=== PATIENT | female | born 1980 | race Caucasian/White ===

== ENCOUNTER 2017-04-14 08:16 | Emergency (ER) | payer BC, OTHER ==
[2017-04-14] MEDS ORDERED: Benzocaine 20% Oral Spray 59.2 ML Canister MUCMEM ONE (08:50)
[2017-04-14] MEDS ORDERED: Lidocaine 2% Jelly 10 ML Urojet MUCMEM ONE (08:50)
--- NOTE | 2017-04-14 08:55 | EDM.PDOC ---
ED HPI GENERAL MEDICAL PROBLEM - General Chief Complaint: ENT Problem Stated Complaint: FB STUCK IN THROAT OR ALLERGIC RX Time Seen by Provider: 04/14/17 08:50 Source of Information: Reports: Patient History Limitations: Reports: No Limitations - History of Present Illness INITIAL COMMENTS - FREE TEXT/NARRATIVE: 36-year-old female presents to the ED with a foreign body sensation in the right side of her throat. She states she ate a very hot meatball last evening about 1600 hrs. So hot she can keep in her mouth and she just swallowed it. Since that time she's felt foreign body sensation in the right side of her throat and she can get liquids down but she feels that part of them regurgitate his affairs still a residual foreign body. Even her saliva will sometimes not go down and it hurts very badly to try and swallow. Therefore could be a burn to the oropharynx. Foreign body could still be present as well. I will therefore try and have a look at her oropharynx with the nasopharyngeal laryngoscope. 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 (see below) Throat Pain Score (Numeric/FACES): 9 - Related Data Allergies Allergy/AdvReac Type Severity Reaction Status Date / Time Sulfa (Sulfonamide Allergy Abdominal Verified 04/14/17 08:22 Antibiotics) Pain Home Meds: Home Meds Cephalexin [Keflex] 500 mg PO TID #15 cap 04/14/17 [Rx] Diazepam [Valium] 5 mg PO TID 04/14/17 [History] Fluconazole [Diflucan] 150 mg PO ONETIME #1 tablet 04/14/17 [Rx] Gabapentin [Neurontin] 600 mg PO TID 04/14/17 [History] SUMAtriptan Succinate [Imitrex] 100 mg PO ASDIRECTED PRN 04/14/17 [History] Sucralfate [Carafate] 1 gm PO Q6H #12 cup 04/14/17 [Rx] oxyCODONE HCl/Acetaminophen [Percocet 5-325 mg Tablet] 1 - 2 each PO Q4H PRN # 20 tablet 04/14/17 [Rx] Past Medical History Cardiovascular History: Reports: Other (See Below) Other Cardiovascular History: 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: Neurological History: Reports: Other (See Below) Other Neuro History: trigeminal neurology - Past Surgical History GI Surgical History: Reports: Cholecystectomy Female Surgical History: Reports: Hysterectomy Social & Family History - Tobacco Use Smoking Status *Q: Never Smoker Second Hand Smoke Exposure: No - Caffeine Use Caffeine Use: Reports: Coffee - Recreational Drug Use Recreational Drug Use: No - Living Situation & Occupation Living situation: Reports: Occupation: Employed ED ROS ENT - Review of Systems Review Of Systems: See Below Constitutional: Denies: Fever, Chills, Malaise, Weakness, Decreased Appetite, Weight Loss HEENT: Reports: Throat Pain Respiratory: Reports: No Symptoms (Mostly on the right side when she swallows.) , Other (No stridorous breathing.) Cardiovascular: Reports: No Symptoms Endocrine: Reports: No Symptoms GI/Abdominal: Reports: No Symptoms : Reports: No Symptoms ED EXAM, ENT - Physical Exam Exam: See Below Exam Limited By: No Limitations General Appearance: Alert, WD/WN, No Apparent Distress Mouth/Throat: Other (Posterior oropharynx visualized with tongue blade shows no abnormalities.) Neck: Normal Inspection, Supple, Non-Tender, Full Range of Motion. No: Lymphadenopathy (L), Lymphadenopathy (R) Respiratory/Chest: No Respiratory Distress, Lungs Clear, Normal Breath Sounds, No Accessory Muscle Use Cardiovascular: Normal Peripheral Pulses, Regular Rate, Rhythm, No Edema, No Gallop, No Murmur, No Rub Course - Vital Signs Last Recorded V/S: Last Vital Signs Temp 36.3 C 04/14/17 08:24 Pulse 72 04/14/17 08:24 Resp 13 04/14/17 08:24 BP 128/73 04/14/17 08:24 Pulse Ox 100 04/14/17 08:24 - Orders/Labs/Meds Meds: Medications Discontinued Medications Generic Name Dose Route Start Last Admin Trade Name Freq PRN Reason Stop Dose Admin Benzocaine 5 ml 04/14/17 08:50 04/14/17 08:57 Hurricaine 20% [place] MUCMEM 04/14/17 08:51 1 spray ONETIME ONE Administration Lidocaine HCl 10 ml 04/14/17 08:50 04/14/17 08:58 Xylocaine 2% Jelly MUCMEM 04/14/17 08:51 10 ml ONETIME ONE Administration - Radiology Interpretation Free Text/Narrative:: 36-year-old female presents to the ED with foreign body sensation in the right side of her throat after eating a very hot meatball last evening. Therefore it' s unclear whether she burned her posterior oropharynx with painful swallowing and difficulty swallowing or there is a retained foreign body. I would suspect it may well just be a burn to the posterior oropharynx. I'll try and have a look at the area with the nasopharyngeal laryngoscope. Will use viscous lidocaine into her naris to introduce the tube and Hurricaine spray for her posterior oropharynx. - Re-Assessments/Exams Free Text/Narrative Re-Assessment/Exam: 04/14/17 09:22 exploration of the hypopharynx with the nasopharyngeal scope revealed normal appearing arytenoid cartilages and vocal cords. The epiglottis appeared to be intact. No obvious foreign bodies were identified in the hypopharynx. There appears to be inflammation on the right side of the hypopharynx i.e. swelling and erythema without ulcer /blister formation. This would be compatible with a burn to the mucosa in this area. Treatment will be Amoxil 500 mg 3 times daily for 5 days to prevent secondary infection. Carafate suspension swish and swallow 4 times daily for the next 3 days. Motrin 6 mg every 6 hours when necessary for pain and inflammation and Percocet 5/3/25 milligram tablet one every 4-6 hours with the Motrin to relieve the pain. Patient also requested a Diflucan tablet as she often develops vaginal candidiasis from antibiotics. Departure - Departure Time of Disposition: 09:15 Disposition: Home, Self-Care 01 Condition: Fair Clinical Impression: Pharyngitis - Discharge Information Prescriptions: Cephalexin [Keflex] 500 mg PO TID #15 cap Fluconazole [Diflucan] 150 mg PO ONETIME #1 tablet oxyCODONE HCl/Acetaminophen [Percocet 5-325 mg Tablet] 1 - 2 each PO Q4H PRN # 20 tablet PRN Reason: pain relief. Sucralfate [Carafate] 1 gm PO Q6H #12 cup Referrals: PCP,None [Primary Care Provider] - Forms: ED Department Discharge Additional Instructions: Evaluation the emergency room today in regards to injury to the lower right oropharynx. He called us the hypopharynx. Examination suggests a superficial burn to the mucosa or the lining of the throat from hot meatball ingested last night. I did not see any blister formation. Area of erythema and swelling only identified in the right hypopharynx. Vocal cords epiglottis and arytenoid cartilages are normal. Treatment is essentially time to heal which will be 3-5 days. Suggest use of Carafate suspension swish and swallow 4 times daily ideally about a half hour before meals and at bedtime for 3 days. Percocet tabs 10/12/24 one or 2 every 4-6 hours as needed for pain relief. Often 600 mg of Motrin with 1 tablet of pain pill works well. Amoxil 500 mg 3 times daily for 5 days to prevent secondary infection. Diflucan given a your request for prevention of yeast candidiasis. Expect gradual improvement over the next 3-5 days. Suggest soft diet bland with non-acidic juices until area has healed. juices.
== END 2017-04-14 09:29 | disposition home or self-care (01) ==
LOC: JD.ED 08:16
PROC: 0CJY8ZZ Inspection of Mouth and Throat, Via Natural or Artificial Opening Endoscopic (ICD-10-PCS; principal; 2017-04-14)
DX: J02.9 Acute pharyngitis, unspecified (principal); Z88.2 Allergy status to sulfonamides; Z79.899 Other long term (current) drug therapy
CPT/HCPCS: 92511; 99283

== ENCOUNTER 2019-05-13 19:00 | Emergency (ER) | payer BC, OTHER ==
--- NOTE | 2019-05-13 19:55 | EDM.PDOC ---
ED HPI GENERAL MEDICAL PROBLEM - General Chief Complaint: Lower Extremity Injury/Pain Stated Complaint: LEG SWELLING Time Seen by Provider: 05/13/19 19:31 Source of Information: Reports: Patient, RN Notes Reviewed - History of Present Illness INITIAL COMMENTS - FREE TEXT/NARRATIVE: 38 year old female with swelling, discomfort posterior R knee, proximal R leg. She has hx of previous knee injuries, prior R knee surgery. Someone mentioned the possibility of "blood clots" and that is what brings her in at this time. No chest pain or difficulty breathing. No hx of blood clots. 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: Neurological History: Reports: Other (See Below) Other Neuro History: trigeminal neurology Psychiatric History: Reports: Anxiety - Past Surgical History GI Surgical History: Reports: Cholecystectomy Female Surgical History: Reports: Hysterectomy Musculoskeletal Surgical History: Reports: Other (See Below) Other Musculoskeletal Surgeries/Procedures:: R knee surgeries Social & Family History - Tobacco Use Smoking Status *Q: Current Every Day Smoker Years of Tobacco use: 20 Packs/Tins Daily: 0.5 - Caffeine Use Caffeine Use: Reports: Coffee - Recreational Drug Use Recreational Drug Use: No - Living Situation & Occupation Living situation: Reports: Occupation: Employed Review of Systems - Review of Systems Review Of Systems: See Below Mouth/Throat: Reports: No Symptoms Respiratory: Denies: Shortness of Breath, Wheezing, Cough, Hemoptysis Cardiovascular: Denies: Chest Pain, Lightheadedness Musculoskeletal: Reports: Joint Pain (R knee) Skin: Denies: Bruising, Erythema Neurological: Reports: No Symptoms ED EXAM, GENERAL - Physical Exam Exam: See Below Exam Limited By: No Limitations General Appearance: Alert, No Apparent Distress Eye Exam: Bilateral Eye: PERRL Throat/Mouth: Normal Inspection Head: Atraumatic Neck: Supple Respiratory/Chest: No Respiratory Distress, Lungs Clear, Normal Breath Sounds. No: Rhonchi, Wheezing Cardiovascular: Regular Rate, Rhythm Extremities: Other (very mild tenderness post R knee, no visible swelling of knee, no effusion, joint stable, good ROM). No: Joint Swelling, Leg Pain, Increased Warmth, Redness Neurological: Alert, Oriented, No Motor/Sensory Deficits Course - Vital Signs Last Recorded V/S: Last Vital Signs Temp 98.4 F 05/13/19 19:16 Pulse 91 05/13/19 19:16 Resp 20 05/13/19 19:16 BP 134/91 H 05/13/19 19:16 Pulse Ox 95 05/13/19 19:16 - Re-Assessments/Exams Free Text/Narrative Re-Assessment/Exam: 05/15/19 09:32. 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 Pt is willing to come back at that time and get US of R leg. Clinically she is very low risk for DVT with no major findings RLE to support that. This could be a Rivera's cyst. With her continued sx it is important to get an US but not emergent. This has been discussed with patient and she understands. Discharge instr. as documented. Departure - Departure Time of Disposition: 19:51 Disposition: Home, Self-Care 01 Condition: Fair Clinical Impression: Right knee pain, Right leg swelling - Discharge Information Instructions: Knee Pain, Adult Referrals: PCP,Not In Area [Primary Care Provider] - Forms: ED Department Discharge Additional Instructions: continue margaret wrap therapy in the evenings but also wear margaret wrap when working during the day. Rest and elevate leg as much as possible until pain and swelling resolving. Continue advil or aleve 2 to 3 times daily. US of RLE tomorrow morning. Come to the hospital 7 AM tomorrow to register, US will be done shortly after that. I will call you later tomorrow morning after 11 AM when I get results, If you have not heard from us by 12 noon call ED at [phone].
== END 2019-05-13 20:30 | disposition home or self-care (01) ==
LOC: JD.ED 19:00
DX: M25.561 Pain in right knee (principal); M79.89 Other specified soft tissue disorders; F41.9 Anxiety disorder, unspecified; F17.210 Nicotine dependence, cigarettes, uncomplicated; Z88.2 Allergy status to sulfonamides; Z79.899 Other long term (current) drug therapy
CPT/HCPCS: 99283

== ENCOUNTER 2021-09-29 11:11 | Emergency (ER) | payer BC ==
[2021-09-29] MEDS ORDERED: Iopamidol 612 MG/ML 100 ML Bottle IVPUSH ONE (12:01)
[2021-09-29] MEDS ORDERED: Iopamidol 612 MG/ML 50 ML SDV IVPUSH ONE (12:01)
[2021-09-29] MEDS ORDERED: Sodium Chloride 0.9% 10 ML Syringe FLUSH ONE (12:01)
[2021-09-29] MEDS: Sodium Chloride 0.9% 10 ML Syringe FLUSH PRN ×2 (12:43→13:03)
== END 2021-09-29 15:00 | disposition home or self-care (01) ==
LOC: JD.ED 11:11
DX: R22.0 Localized swelling, mass and lump, head (principal); I89.0 Lymphedema, not elsewhere classified; Z88.2 Allergy status to sulfonamides
CPT/HCPCS: 36415; 70460; 70491; 71260; 74177; 80053; 83735; 83880; 84484; 85025; 86140; 86308; 99284; J3490; Q9967

== ENCOUNTER 2023-07-17 14:13 | Emergency (ER) | payer BC ==
[2023-07-17 14:46] LABS: BASOPHILS ABSOLUTE AUTO 0.1 K/mm3 (0.0-0.2); BASOPHILS PERCENT AUTO 0.6 % (0.0-1.0); EOSINOPHILS ABSOLUTE AUTO 0.3 K/mm3 (0.0-0.4); EOSINOPHILS PERCENT AUTO 2.5 % (0.0-6.0); HEMATOCRIT 45.5 % (37.0-47.0); IMMATURE GRAN ABSOLUTE AUTO 0.03 K/mm3 (0.00-0.05); IMMATURE GRAN PERCENT AUTO 0.3 % (0.0-0.4); LYMPHOCYTES ABSOLUTE AUTO 1.3 K/mm3 (1.0-4.8); LYMPHOCYTES PERCENT AUTO 13.5 % (24.0-44.0); MEAN CORPUSCULAR HEMOGLOBIN 32.9 pg (28.0-32.0); MEAN CORPUSCULAR HGB CONC 35.2 g/dl (32.0-36.0); MEAN CORPUSCULAR VOLUME 93.4 fl (83.0-99.0); MONOCYTES ABSOLUTE AUTO 0.6 K/mm3 (0.0-0.8); MONOCYTES PERCENT AUTO 5.5 % (0.0-8.0); NEUTROPHILS ABSOLUTE AUTO 7.7 K/mm3 (1.8-7.7); NEUTROPHILS PERCENT AUTO 77.6 % (41.0-71.0); PLATELET COUNT,PLT 313 K/mm3 (150-400); RED BLOOD CELL COUNT 4.87 M/mm3 (4.10-5.30); WHITE BLOOD CELL COUNT,WBC 9.93 K/mm3 (3.9-11.3)
[2023-07-17 15:03] LABS: INR 1.07; PROTHROMBIN TIME 11.4 SECONDS (9.7-12.0)
[2023-07-17 15:05] LABS: PTT,PARTIAL THROMBOPLSTIN TIME 23.8 SECONDS (21.7-31.4)
[2023-07-17 15:11] LABS: A/G RATIO 1.1 (1-2); ALANINE AMINOTRANSFERASE,ALT 31 U/L (14-59); ALBUMIN 3.9 g/dl (3.4-5.0); ALKALINE PHOSPHATASE 80 U/L (46-116); ANION GAP 16.3 (5-15); ASPARTATE AMNIOTRANSFERASE,AST 28 U/L (15-37); BILIRUBIN TOTAL 0.7 mg/dL (0.2-1.0); BLOOD UREA NITROGEN,BUN 14 mg/dL (7-18); BUN/CREATININE RATIO 15.6 (14-18); C-REACTIVE PROTEIN <0.2 mg/dL (<1.0); CALCIUM 9.1 mg/dL (8.5-10.1); CARBON DIOXIDE,CO2 26 mEq/L (21-32); CHLORIDE,CL 98 mEq/L (98-107); CREATININE 0.9 mg/dL (0.55-1.02); ESTIMATED GFR 81 mL/min (>60); GLUCOSE RANDOM 105 mg/dL (70-99); MAGNESIUM 1.6 mg/dL (1.8-2.4); POTASSIUM,K 3.3 mEq/L (3.5-5.1); PROTEIN TOTAL,TP 7.5 g/dl (6.4-8.2); SODIUM,NA 137 mEq/L (136-145)
[2023-07-17] MEDS: LORazepam 2 MG/ML SDV IVPUSH ONE ×2 (15:11→18:01)
[2023-07-17] MEDS: Sodium Chloride 0.9% 10 ML Syringe FLUSH PRN (15:15)
[2023-07-17] MEDS: levETIRAcetam 1,000 MG in Sodium Chloride 0.9% 100 ML IV ONE ×2 (15:39→20:09)
[2023-07-17] MEDS: Ondansetron 4 MG/2 ML SDV IVPUSH ONE (19:15)
[2023-07-17 20:32] LABS: BARBITURATE SCREEN,URINE NEGATIVE (CUTOFF=200); BENZODIAZEPINES SCREEN,URINE PRESUMPTIVE POSITIVE (CUTOFF=150); BUPRENORPHINE SCREEN,URINE NEGATIVE (CUTOFF=10); METHADONE SCREEN, URINE NEGATIVE (CUTOFF=200); METHAMPHETAMINES SCREEN, URINE NEGATIVE (CUTOFF=500); OXYCODONE SCREEN,URINE PRESUMPTIVE POSITIVE (CUT0FF=100); THC SCREEN,URINE 20 NG/ML PRESUMPTIVE POSITIVE (CUTOFF=50)
[2023-07-17 20:44] LABS: AMPHETAMINES SCREEN, URINE NEGATIVE (CUTOFF=500)
[2023-07-17] MEDS: levETIRAcetam 500 MG Tab PO ONE (23:34)
[2023-07-17] MEDS: Ondansetron 4 MG Tab.DIS PO ONE (23:34)
== END 2023-07-17 23:35 | disposition home or self-care (01) ==
LOC: JD.ED 14:13
DX: G40.409 Other generalized epilepsy and epileptic syndromes, not intractable, without status epilepticus (principal); M06.9 Rheumatoid arthritis, unspecified; F17.210 Nicotine dependence, cigarettes, uncomplicated; Z88.2 Allergy status to sulfonamides; Z88.5 Allergy status to narcotic agent
CPT/HCPCS: 36415; 70450; 80053; 80306; 80307; 83735; 85025; 85610; 85730; 86140; 96365; 96375; 96376; 99285; A9270; J1953; J2060; J2405; J3490; 99284